=== PATIENT | female | born 1960 | race Caucasian/White ===

== ENCOUNTER 2016-08-31 12:54 | Day surgery (SDC) | payer OTHER ==
[~2016-08-31] VITALS: Ht 181.6 cm; Wt 79.5 kg
[~2016-08-31 12:54] MED LIST: ADULT LOW DOSE81 M1 PO; ASPIRIN EC325 MG PO; ASPIRIN325 MG PO; ATORVASTATIN CA40 MG PO; CLOPIDOGREL75 MG PO; HYDROCODON-ACE1 EAC7 PO; INSULIN PUMP SCCONT; LEVEMIR FL100 UNIT/1 SC; LEVO-T125 MCG PO; LEVOTHYROXINE100 MCG PO; LIPITOR40 MG PO; LISINOPRIL10 MG PO; METOCLOPRAMIDE10 MG PO; MOTRIN800 MG PO; NEURONTIN600 MG PO; NORCO 5/3251 TABLET PO; NOVOLOG PE100 UNITS/ SC; PEPCID20 MG PO; PLAVIX75 MG PO; SYNTHROID100 MCG PO
[2016-08-31 13:52] VITALS: BP 108/75
[2016-08-31 14:07] LABS: POINT-OF-CARE METER ID UU14174212
[2016-08-31 17:42] LABS: POINT-OF-CARE METER ID UU13113675; POINT-OF-CARE USER ID 515036437
[2016-08-31 18:02] LABS: POINT-OF-CARE METER ID UU13113675
[2016-08-31 18:08] VITALS: BP 144/68
[2016-08-31 19:08] VITALS: BP 141/67
== END 2016-08-31 19:08 | disposition home or self-care (01) ==
LOC: SDC 12:54
PROVIDERS: Internal Medicine
DX: E11.3591 Type 2 diabetes mellitus with proliferative diabetic retinopathy without macular edema, right eye (principal); H43.11 Vitreous hemorrhage, right eye; I10 Essential (primary) hypertension; E11.40 Type 2 diabetes mellitus with diabetic neuropathy, unspecified; Z96.41 Presence of insulin pump (external) (internal); F17.210 Nicotine dependence, cigarettes, uncomplicated; E78.00 Pure hypercholesterolemia, unspecified; E03.9 Hypothyroidism, unspecified; Z82.49 Family history of ischemic heart disease and other diseases of the circulatory system; Z80.0 Family history of malignant neoplasm of digestive organs; Z80.3 Family history of malignant neoplasm of breast; Z82.5 Family history of asthma and other chronic lower respiratory diseases; Z82.3 Family history of stroke; Z82.0 Family history of epilepsy and other diseases of the nervous system; Z79.82 Long term (current) use of aspirin
CPT/HCPCS: 82948; J0690; J2250; J3010; J3300